=== PATIENT | male | born 1945 | race Caucasian/White ===

== ENCOUNTER 2020-09-16 07:30 | Day surgery (SDC) | payer MEDICARE, SELFPAY ==
[2020-09-10 11:53] VITALS: BMI 38.2
--- NOTE | 2020-09-12 13:05 | P.CONAN_ITS ---
Documented by User: Jeanne Malave 09/12/20 13:09 HPI - Anesthesia Eval Consult details Narrative: 75yo M for Colon[facility] Past Medical History Medical History Adverse reaction to spinal anesthetic Asthma Asymptomatic PVCs HTN (hypertension) Hx of iron deficiency anemia Hx of urethral stricture Hyperlipidemia PONV (postoperative nausea and vomiting) Urethra disorder Surgical History Surgical History History of back surgery History of thumb surgery Hx of colonoscopy Hx of cystoscopy Hx of shoulder surgery Hx of shoulder surgery Social History Social History Are you a primary direct care counselor to a significant other at home: No Do you presently have visiting nurse or other home services: No Smoking Status: Former smoker Smoking Quit Date: 50 yrs ago Use of substances other than those prescribed or required for medical reasons: No Have you been hit, kicked, punched, or otherwise hurt by someone within the past year? If so, by whom?: No Advance Directives: No Advance Directives Information Provided: No Advance Directives on File: No Recently lost weight without trying: No Meds Allergies Allergy/AdvReac Type Severity Reaction Status Date / Time Sulfa (Sulfonamide Allergy Unknown [place] Verified 09/10/20 11:16 Antibiotics) Lousy Home Medications Medication Instructions Recorded Confirmed Type albuterol sulfate [ProAir HFA] 1 puff INHALATION QID PRN 09/10/20 09/10/20 History amlodipine 1 tab PO DAILY 09/10/20 09/16/20 History aspirin [Aspir-81] 81 mg PO DAILY 09/10/20 09/10/20 History budesonide-formoterol [Symbicort] 2 puff INHALATION BID 09/10/20 09/16/20 History cetirizine 10 mg PO DAILY 09/10/20 09/10/20 History ibuprofen 1 tab PO TID 09/10/20 09/16/20 History ipratropium bromide 1 spray INTRANASAL BID PRN 09/10/20 09/10/20 History multivitamin,tj-tmwx-Yc-FA-min 1 tab PO DAILY 09/10/20 09/10/20 History [Multivitamin And Mineral] rosuvastatin 1 tab PO DAILY 09/10/20 09/10/20 History Exam Exam Date and Time: September 12, 2020 1305 Height,Weight and Vital Signs: Height 5 ft 8.5 in Weight 115.666 kg Assessment and Plan Assessment Anesthesia Assessment: Chart Reviewed Documented by User: Shaggy Rapp 09/16/20 08:42 [facility] Past Medical History Medical History Adverse reaction to spinal anesthetic Asthma Asymptomatic PVCs HTN (hypertension) Hx of iron deficiency anemia Hx of urethral stricture Hyperlipidemia PONV (postoperative nausea and vomiting) Urethra disorder Surgical History Surgical History History of back surgery History of thumb surgery Hx of colonoscopy Hx of cystoscopy Hx of shoulder surgery Hx of shoulder surgery Social History Social History Are you a primary direct care counselor to a significant other at home: No Do you presently have visiting nurse or other home services: No Smoking Status: Former smoker Smoking Quit Date: 50 yrs ago Use of substances other than those prescribed or required for medical reasons: No Have you been hit, kicked, punched, or otherwise hurt by someone within the past year? If so, by whom?: No Advance Directives: No Advance Directives Information Provided: No Advance Directives on File: No Recently lost weight without trying: No Meds Allergies Allergy/AdvReac Type Severity Reaction Status Date / Time Sulfa (Sulfonamide Allergy Unknown [place] Verified 09/10/20 11:16 Antibiotics) Lousy Home Medications Medication Instructions Recorded Confirmed Type albuterol sulfate [ProAir HFA] 1 puff INHALATION QID PRN 09/10/20 09/10/20 Hist ory amlodipine 1 tab PO DAILY 09/10/20 09/16/20 History aspirin [Aspir-81] 81 mg PO DAILY 09/10/20 09/10/20 History budesonide-formoterol [Symbicort] 2 puff INHALATION BID 09/10/20 09/16/20 Hist ory cetirizine 10 mg PO DAILY 09/10/20 09/10/20 History ibuprofen 1 tab PO TID 09/10/20 09/16/20 History ipratropium bromide 1 spray INTRANASAL BID PRN 09/10/20 09/10/20 History multivitamin,mp-qrib-Gs-FA-min 1 tab PO DAILY 09/10/20 09/10/20 History [Multivitamin And Mineral] rosuvastatin 1 tab PO DAILY 09/10/20 09/10/20 History Exam Airway Mallampati Class: II TM Dist: >3cm Neck ROM: Full Loose/Missing/Broken Teeth: Yes Heart: [id number] Lungs: cta b/l Assessment and Plan Assessment Anesthesia Assessment: Anesthesia Plan Discussed, PAT Visit and Chart Reviewed Final Anesthetic Review NPO: Yes ASA Class: III Final Preanesthetic Review: No Changes in Pt Med Stat, Meds/Allgs Chart Reviewed, Consent Obtained/Reviewed and Anes Risks/Benef Reviewed Patient Risk: Intermediate Procedure Risk: Low Assessment/Block/Sedation in SS: Assess/Block/Sedation-SS Anesthetic Plan Anesthetic Plan: MAC: and Agree w/ Assess. and Plan Disposition: Standard PACU
[2020-09-16 08:01] VITALS: BP 146/73; PULSE 98; RESP 18; TEMP 36.3; O2SAT 96
[2020-09-16] MEDS: Lactated Ringers 1,000 ML 100 ML IVCONT (08:05)
--- NOTE | 2020-09-16 09:54 | PM.OP ---
Brief Operative Note Date of Service: 09/16/20 Pre-op diagnosis: Screening Post-op diagnosis: other (Colon polyps) Procedure: Colonoscopy to cecum and TI with snare polypectomy and placement of 2 Resolution clips on the cecal and proximal asc. colon polypectomy sites Surgeon: Adriel Irving Anesthesia: MAC Estimated blood loss (mL): 3.0 Pathology: other (A. Transverse colon polyp B. Proximal ascending colon polyp C. Ascending colon polyps D. Cecal polyp E. Rectal polyp) Condition: stable Disposition: PACU
[2020-09-16 09:59] VITALS: BP 131/66; PULSE 73; RESP 20; TEMP 36.8; O2SAT 98
--- NOTE | 2020-09-16 10:11 | OP_ITS ---
SURGEON: Adriel Irving MD INDICATIONS: The patient presents for evaluation of colorectal cancer screening and personal history of tubular adenoma of the colon. Full consent has been obtained from him for this, including risks of bleeding and perforation. PREOPERATIVE DIAGNOSIS: POSTOPERATIVE DIAGNOSIS: PROCEDURE PERFORMED: Colonoscopy to cecum and terminal ileum with snare polypectomy, and placement of resolution clips x2. ESTIMATED BLOOD LOSS: COMPLICATIONS: ANESTHESIA: Monitored anesthesia care. ASSISTANTS: SPECIMENS: PREOPERATIVE DIAGNOSES: Personal history of tubular adenoma of the colon and colorectal cancer screening. POSTOPERATIVE DIAGNOSES: Personal history of tubular adenoma of the colon and colorectal cancer screening, colon polyps, diverticulosis, and internal hemorrhoids. DESCRIPTION OF PROCEDURE: The patient was placed in the left lateral decubitus position. The digital rectal exam revealed some small external hemorrhoidal tissue. The Olympus video pediatric colonoscope was entered into the rectum and advanced easily to the cecum. Once in the cecum, I did identify cecal pouch with appendiceal orifice and a normal-appearing ileocecal valve. The terminal ileum was cannulated and appeared normal. The scope was withdrawn back in the colon. The entire cecum was well visualized. In the cecum, was a relatively flat, but raised approximately 10 x 12 mm polyp, which was snared and recovered by suction. The polypectomy site appeared clean, without any sign of residual polyp nor bleeding. A single resolution clip was placed at the polypectomy site with good deployment and good hemostasis. The scope was then slowly withdrawn assessing all mucosal surfaces carefully. Preparation was excellent. In the proximal ascending colon, approximately 15 x 20 mm raised polyp, which was snared and removed in piecemeal fashion. Smaller pieces were recovered by suction and the larger piece was recovered with the retrieval net and withdrawing it out of the patient. The scope was withdrawn from the patient, but then re-advanced back to the polypectomy site. The polypectomy site appeared clean, without any sign of residual polyp nor bleeding. In the ascending colon, were several other smaller approximately 10 mm polyps, which were all snared and recovered by suction. The polypectomy sites appeared clean, without any sign of residual polyp nor bleeding. There were other smaller approximately 5 mm polyps, which were not removed in the colon. In the proximal rectum, was an approximately 15 mm polyp on a broad stalk, which was snared and recovered by withdrawing it from the patient on the tip of the scope. The scope was then reinserted into the rectum. The polypectomy site appeared clean, without any sign of residual polyp nor bleeding. I did place a single resolution clip on the polypectomy site with good deployment and good hemostasis. Of note, there was also a transverse colon polyp that was approximately 10 x 12 mm in diameter. This was also snared and recovered by suction. The polypectomy site appeared clean, without any sign of residual polyp nor bleeding. There was a moderate amount of sigmoid diverticulosis. In the rectum, scope was retroflexed visualizing internal hemorrhoids, but no other pathology. The scope was straightened out and withdrawn from the patient. He tolerated the procedure well and was returned to the recovery area in stable condition. IMPRESSION: 1. Multiple colon polyps, status post snare polypectomy and placement of 2 resolution clips. 2. Diverticulosis. 3. Internal hemorrhoids. PLAN: The results of the pathology will be checked. Given these findings, I would recommend a repeat colonoscopy within 1 year. I have instructed to see me in the fall, so we can set that up for him. He was advised not to use any aspirin and NSAIDs for at least a week. This has been discussed with his . MD MEGAN Sauceda/JOSS / [id number]
[2020-09-16 10:14] VITALS: BP 130/70; PULSE 65; RESP 18; TEMP 36.4; O2SAT 96
--- NOTE | 2020-09-16 10:29 | HO.POSTANES ---
Post Anesthesia Evaluation Post Anesthesia Evaluation Vital Signs: Vital Signs Temp Pulse Resp BP Pulse Ox 09/16/20 10:14 97.6 F 65 18 130/70 96 09/16/20 09:59 98.3 F 73 20 131/66 98 09/16/20 08:01 97.3 F 98 18 146/73 H 96 Anesthesia: Monitored Mental Status: Awake Nausea/Vomiting: None Hydration: Adequate Anesthesia-Related Issues: No Anes. Related Issues
== END 2020-09-16 10:50 | disposition home or self-care (01) ==
PROVIDERS: PCP Internal Medicine; Visit Provider Internal Medicine
PROC: 0DJD8ZZ Inspection of Lower Intestinal Tract, Via Natural or Artificial Opening Endoscopic (ICD-10-PCS; CPT 45378; principal; 2020-09-16 08:40)
DX: Z12.11 Encounter for screening for malignant neoplasm of colon (principal); D12.7 Benign neoplasm of rectosigmoid junction; D12.2 Benign neoplasm of ascending colon; D12.0 Benign neoplasm of cecum; D12.3 Benign neoplasm of transverse colon; K57.30 Diverticulosis of large intestine without perforation or abscess without bleeding; K64.8 Other hemorrhoids; Z86.010 Personal history of colon polyps; I10 Essential (primary) hypertension; Z79.82 Long term (current) use of aspirin; Z79.899 Other long term (current) drug therapy
CPT/HCPCS: 45385; 88305

== ENCOUNTER 2021-05-04 10:45 | Emergency (ER) | payer OTHER, MEDICARE, SELFPAY ==
[2021-05-04 11:09] VITALS: BP 156/76; PULSE 76; RESP 18; TEMP 36.7; O2SAT 96; BMI 38.7
--- NOTE | 2021-05-04 11:43 | PC.NURSE ---
Pt disimpacted at bedside by MD at bedside and fleet enema given. Commode at bedside.
--- NOTE | 2021-05-04 11:50 | ED_ITS ---
HPI - Abdominal Pain General Chief Complaint: Abdominal Pain Stated Complaint: abd pain, constipation Time Seen by Provider: 05/04/21 11:29 History of Present Illness HPI narrative: Patient is 76 years old presented today with having no bowel movement for last 3 days. No difficulty eating. Patient is passing gas. No abdominal surgery in the past. No fever no chills no cough no congestion or upper respiratory symptoms. No diaphoresis. No chest pain. Related Data Home Medications Medication Instructions Recorded Confirmed albuterol sulfate 90 mcg/actuation 1 puff INHALATION QID PRN 09/10/20 09/10/20 aerosol inhaler (ProAir HFA) amlodipine 2.5 mg tablet 1 tab PO DAILY 09/10/20 09/16/20 aspirin 81 mg tablet,delayed 81 mg PO DAILY 09/10/20 09/10/20 release budesonide-formoterol HFA 160 2 puff INHALATION BID 09/10/20 09/16/20 mcg-4.5 mcg/actuation aerosol inhaler (Symbicort) cetirizine 10 mg capsule 10 mg PO DAILY 09/10/20 09/10/20 ibuprofen 800 mg tablet 1 tab PO TID 09/10/20 09/16/20 ipratropium bromide 21 mcg (0.03 1 spray INTRANASAL BID PRN 09/10/20 09/10/20 %) nasal spray multivitamin,dv-ihgi-Me-FA-min 1 tab PO DAILY 09/10/20 09/10/20 rosuvastatin 5 mg tablet 1 tab PO DAILY 09/10/20 09/10/20 Allergies Allergy/AdvReac Type Severity Reaction Status Date / Time Sulfa (Sulfonamide Allergy Unknown [place] Verified 05/04/21 11:08 Antibiotics) Lousy Review of Systems Review of Systems No fever no chills no chest pain or Shortness breath no nausea no vomiting Positive no BM Positive flatus All systems reviewed otherwise negative Yes all other systems are reviewed and are negative Physical Exam Vital Signs: Vital Signs: Last Vital Signs Temp 98.1 F 05/04/21 11:09 Pulse 76 05/04/21 11:09 Resp 18 05/04/21 11:09 BP 156/76 H 05/04/21 11:09 Pulse Ox 96 05/04/21 11:09 Body Mass Index 38.7 Appearance: Alert. Oriented X3. No acute distress. Eyes: Pupils equal, round and reactive to light. ENT: Pharynx normal. Neck: Normal inspection. Neck supple. No lymph nodes noted. No crepitus CVS: Normal heart rate and rhythm. Pulses normal. Normal S1 and S2 Respiratory: No respiratory distress. Breath sounds normal. No Wheezing. No rales Abdomen: Soft and nontender. No rigidity. No distention. good BS x4 Rectal exam done with nurse Nettie present. Large amount of impacted stool noted. Skin: Skin warm and dry. Normal skin color. Normal skin turgor. Extremities: No lower extremity edema. Neurovascular intact to all extremities. No Lacerations. No Rash Neuro: Oriented X 3. No motor deficit. No sensory deficit. Moving all extermities. No slurred speech MDM - Abdominal Pain MDM Narrative Medical decision making narrative: Procedure note patient manually disimpacted with large amount of stool resulted. An enema was then given. With an even larger amount of stool resulted. Patient's symptoms completely relieved. Wants to go home. Will ask patient to eat lots of vegetables. Are not using prune juice. Follow-up on an outpatient basis. Differential Diagnosis Differential diagnosis: Likely constipation Discharge Plan Discharge Clinical Impression: Constipation Patient Disposition: Home, Self-Care Instructions: Constipation (ED) Prescriptions: No Action ibuprofen 800 mg tablet 1 tab PO TID RF: 0 amlodipine 2.5 mg tablet 1 tab PO DAILY RF: 0 aspirin [Aspir-81] 81 mg Tablet,Delayed Release (Dr/Ec) 81 mg PO DAILY RF: 0 albuterol sulfate [ProAir HFA] 90 mcg/actuation Hfa Aerosol Inhaler 1 puff INHALATION QID PRN (Reason: Wheezing) RF: 0 ipratropium bromide 0.03 % spray,non-aerosol 1 spray intranasal BID PRN (Reason: congestion) RF: 0 Multivitamin And Mineral Tablet 1 tab PO DAILY RF: 0 rosuvastatin 5 mg tablet 1 tab PO DAILY RF: 0 budesonide-formoterol [Symbicort] 160-4.5 mcg/actuation Hfa Aerosol Inhaler 2 puff INHALATION BID RF: 0 cetirizine 10 mg Capsule 10 mg PO DAILY RF: 0 Referrals: Torin Horn DO, MD [Primary Care Provider] - 2 days PMF Past Medical History Attestation statement: The following information was validated with the patient. Source: unable to obtain Medical History Adverse reaction to spinal anesthetic Asthma Asymptomatic PVCs HTN (hypertension) Hx of iron deficiency anemia Hx of urethral stricture Hyperlipidemia PONV (postoperative nausea and vomiting) Urethra disorder Surgical History History of back surgery History of thumb surgery Hx of colonoscopy Hx of cystoscopy Hx of shoulder surgery Hx of shoulder surgery Social History Social History Are you a primary medical care manager to a significant other at home: No Do you presently have visiting nurse or other home services: No Patient Tobacco Use Status: Former Tobacco user Use of substances other than those prescribed or required for medical reasons: No Advance Directives: No Advance Directives Information Provided: No
== END 2021-05-04 12:30 | disposition home or self-care (01) ==
PROVIDERS: Emergency Provider Emergency Medicine Emergency Medical Services; PCP Internal Medicine
DX: K59.00 Constipation, unspecified (principal); R10.9 Unspecified abdominal pain; Z79.899 Other long term (current) drug therapy
CPT/HCPCS: 99284

== ENCOUNTER 2021-12-01 06:21 | Day surgery (SDC) | payer MEDICARE, SELFPAY ==
[2021-11-25 09:21] VITALS: BMI 38.9
[2021-12-01 06:27] VITALS: BP 146/76; PULSE 78; RESP 18; TEMP 36.1; O2SAT 96
--- NOTE | 2021-12-01 07:31 | P.CONAN_ITS ---
REPLACED BY [facility] Past Medical History Medical History Adverse reaction to spinal anesthetic Asthma Asymptomatic PVCs HTN (hypertension) Hx of iron deficiency anemia Hx of urethral stricture Hyperlipidemia PONV (postoperative nausea and vomiting) Urethra disorder Functional capacity: independent ambulation Family History Family history of problems with anesthesia: No Surgical History Surgical History History of back surgery History of thumb surgery Hx of colonoscopy Hx of cystoscopy Hx of shoulder surgery Hx of shoulder surgery History of Problems with Anesthesia: No Social History Social History Are you a primary youth care worker to a significant other at home: No Do you presently have visiting nurse or other home services: No Patient Tobacco Use Status: Former Tobacco user Advance Directives: No Advance Directives Information Provided: Yes Advance Directives on File: No Meds Allergies Allergy/AdvReac Type Severity Reaction Status Date / Time Sulfa (Sulfonamide Allergy Intermediate [place] Verified 11/25/21 09:23 Antibiotics) Lousy Active Medications: Current Medications Sodium Biphosphate/Sodium Phosphate (Sodium Phosphate,[place]-Dibasic 133 Ml Enema) 133 ml MS ONCE PRN PRN Reason: Poor Colonoscopy Prep Results Home Medications Medication Instructions Recorded Confirmed Last Taken Type albuterol sulfate 90 mcg/actuation 1 puff INHALATION QID PRN 09/10/20 11/25/21 Unknown History aerosol inhaler (ProAir HFA) amlodipine 2.5 mg tablet 1 tab PO DAILY 09/10/20 11/25/21 12/01/21 History aspirin 81 mg tablet,delayed 81 mg PO DAILY 09/10/20 11/25/21 11/26/21 History release budesonide-formoterol HFA 160 2 puff INHALATION BID 09/10/20 11/25/21 12/01/21 History mcg-4.5 mcg/actuation aerosol inhaler (Symbicort) cetirizine 10 mg capsule 10 mg PO DAILY 09/10/20 11/25/21 Unknown History ibuprofen 800 mg tablet 1 tab PO TID 09/10/20 11/25/21 11/26/21 History ipratropium bromide 21 mcg (0.03 1 spray INTRANASAL BID PRN 09/10/20 11/25/21 Unknown History %) nasal spray multivitamin,hr-fyvd-Bh-FA-min 1 tab PO DAILY 09/10/20 11/25/21 Unknown History rosuvastatin 5 mg tablet 1 tab PO DAILY 09/10/20 11/25/21 Unknown History Exam Exam Date and Time: December 01, 2021 0731 Height,Weight and Vital Signs: Height 5 ft 8.5 in Weight 117.934 kg Last Vital Signs Temp 97 F 12/01/21 06:27 Pulse 78 12/01/21 06:27 Resp 18 12/01/21 06:27 BP 146/76 H 12/01/21 06:27 Pulse Ox 96 12/01/21 06:27 Airway Mallampati Class: II TM Dist: >3cm Neck ROM: Full Heart: RRR Lungs: CTA Assessment and Plan Final Anesthetic Review Family History of Problems with Anesthesia: No History of Problems with Anesthesia: No ASA Class: II Final Preanesthetic Review: No Changes in Pt Med Stat, Meds/Allgs Chart Reviewed, Consent Obtained/Reviewed and Anes Risks/Benef Reviewed Patient Risk: Low Procedure Risk: Low Anesthetic Plan Anesthetic Plan: MAC: Disposition: Standard PACU
[2021-12-01 08:34] VITALS: BP 114/61; PULSE 53; RESP 16; TEMP 36.2; O2SAT 93
--- NOTE | 2021-12-01 08:36 | P.BOP_ITS ---
Brief Operative Note Date of Service: 12/01/21 Pre-op diagnosis: Screening Post-op diagnosis: other (Colon polyp) Procedure: Colonoscopy to the cecum and TI with hot snare polypectomy and placement of two Resolution clips Surgeon: Adriel Irving Anesthesia: MAC Was an [employer] used for this Procedure?: No Estimated blood loss (mL): 0 Pathology: other (A. Proximal ascending colon polyp) Condition: stable Disposition: PACU
[2021-12-01 08:49] VITALS: BP 118/62; PULSE 63; RESP 16; TEMP 36.8; O2SAT 96
--- NOTE | 2021-12-01 09:37 | OP_ITS ---
SURGEON: Adriel Irving MD INDICATIONS: The patient presents for evaluation of polyp for personal history of tubular adenomas of the colon and colorectal cancer screening. Full consent has been obtained from him for this, including risks of bleeding and perforation. PREOPERATIVE DIAGNOSIS: Colorectal cancer screening and personal history of tubular adenomas of the colon. POSTOPERATIVE DIAGNOSIS: PROCEDURE PERFORMED: Colonoscopy to the cecum and terminal ileum with hot snare polypectomy and placement of 2 resolution clips. ESTIMATED BLOOD LOSS: COMPLICATIONS: ANESTHESIA: Medication used, monitored anesthesia care. ASSISTANTS: SPECIMENS: POSTOPERATIVE DIAGNOSES: Colorectal cancer screening and personal history of tubular adenomas of the colon, colon polyp, diverticulosis, and internal hemorrhoids. DESCRIPTION OF PROCEDURE: The patient was placed in the left lateral decubitus position. The digital rectal exam revealed no abnormalities. The Olympus video pediatric colonoscope was entered into the rectum and advanced easily to the cecum. Once in the cecum, I did identify a normal-appearing cecal pouch with appendiceal orifice and a normal-appearing ileocecal valve. The terminal ileum was cannulated and appeared normal. The scope was withdrawn back into the colon. The entire cecum and ileocecal valve appeared normal. The scope was then slowly withdrawn assessing all mucosal surfaces carefully. Preparation was excellent after suctioning and irrigating. In the proximal ascending colon on a fold was an approximately 1.5 cm long lobulated polyp which was removed in piecemeal fashion with a hot snare polypectomy with pieces recovered by suction. Post-polypectomy there did not appear to be any definitive residual polyp remaining and 2 resolution clips were deployed with good hemostasis and good placement. I did not visualize any other polyps, although the prep was somewhat limited which could have limited visualization of small polyps. There was no evidence of colitis nor angiodysplasia. There was a moderate amount of sigmoid diverticulosis. In the rectum, the scope was retroflexed visualizing some small internal hemorrhoids, but no other pathology. In the distal rectum was a scar from his previous polypectomy. The scope was straightened and withdrawn from the patient. He tolerated the procedure well and was returned to the recovery area in stable condition. IMPRESSION: 1. Colon polyp. 2. Diverticulosis. 3. Internal hemorrhoids. PLAN: The results of the pathology will be checked. I would recommend a repeat colonoscopy within 1-2 years for further surveillance. He was advised not to use any aspirin nor NSAIDs for at least 1 week. This has been discussed with his . MD MEGAN Sauceda/JOSS / [id number] MTDD
--- NOTE | 2021-12-01 10:12 | HO.POSTANES ---
Post Anesthesia Evaluation Post Anesthesia Evaluation Vital Signs: Vital Signs Temp Pulse Resp BP Pulse Ox 12/01/21 08:49 98.2 F 63 16 118/62 96 12/01/21 08:34 97.2 F 53 16 114/61 93 12/01/21 06:27 97 F 78 18 146/76 H 96 Anesthesia: Monitored Mental Status: Awake Pain Control: Satisfactory Nausea/Vomiting: None Hydration: Adequate Anesthesia-Related Issues: No Anes. Related Issues
== END 2021-12-01 09:23 | disposition home or self-care (01) ==
PROVIDERS: PCP Internal Medicine; Visit Provider Internal Medicine
PROC: 0DJD8ZZ Inspection of Lower Intestinal Tract, Via Natural or Artificial Opening Endoscopic (ICD-10-PCS; CPT 45378; principal; 2021-12-01 07:30)
DX: Z12.11 Encounter for screening for malignant neoplasm of colon (principal); Z86.010 Personal history of colon polyps; D12.2 Benign neoplasm of ascending colon; K57.30 Diverticulosis of large intestine without perforation or abscess without bleeding; K64.8 Other hemorrhoids; I10 Essential (primary) hypertension; E78.5 Hyperlipidemia, unspecified; J45.909 Unspecified asthma, uncomplicated; R97.20 Elevated prostate specific antigen [PSA]; Z79.82 Long term (current) use of aspirin; Z79.51 Long term (current) use of inhaled steroids; Z79.899 Other long term (current) drug therapy; Z98.890 Other specified postprocedural states; Z79.1 Long term (current) use of non-steroidal anti-inflammatories (NSAID); Z87.891 Personal history of nicotine dependence
CPT/HCPCS: 45385; 88305

== ENCOUNTER 2024-05-12 09:08 | Day surgery (SDC) | payer MEDICARE, SELFPAY ==
[2024-05-12 10:19] VITALS: BMI 27.6
--- NOTE | 2024-05-12 10:25 | P.CONAN_ITS ---
Documented by User: Jeanne Malave NP 05/11/24 13:43 HPI - Anesthesia Eval Consult details Narrative: 79yo M for Colonoscopy Follows [facility]. 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 No ICD per ILR. Stable at 02/2024 office visit with 60lb weight loss since CABG PMFSH Past Medical History Medical History Hx of iron deficiency anemia Asymptomatic PVCs Urethra disorder Adverse reaction to spinal anesthetic PONV (postoperative nausea and vomiting) Hx of urethral stricture Hyperlipidemia Asthma HTN (hypertension) Family History Family history of problems with anesthesia: No Surgical History Surgical History (Updated 05/12/24 @ 10:19 by Khushbu Valenzuela RN) History of surgery Hx of CABG History of back surgery History of thumb surgery Hx of shoulder surgery Hx of cystoscopy Hx of shoulder surgery Hx of colonoscopy History of Problems with Anesthesia: No Social History Social History Are you a primary residential child care counselor to a significant other at home: No Do you presently have visiting nurse or other home services: No Patient Tobacco Use Status: Former Tobacco user Use of substances other than those prescribed or required for medical reasons: No Are you DNR?: No Advance Directives: No Advance Directives Information Provided: Yes Recently lost weight without trying: No Nutrition Risks: No Nutritional Risk Meds Allergies Allergy/AdvReac Type Severity Reaction Status Date / Time Sulfa (Sulfonamide Allergy Intermediate [place] Verified 11/25/21 09:23 Antibiotics) Lousy Home Medications ?Medication ?Instructions ?Recorded ?Confirmed ?Last Taken ?Type albuterol sulfate 90 mcg/actuation 1 puff inhalation QID PRN Wheezing 09/10/20 11/25/21 Unknown History aerosol inhaler (ProAir HFA) aspirin 81 mg tablet,delayed 81 mg PO DAILY 09/10/20 11/25/21 11/26/21 History release budesonide-formoterol HFA 160 2 puff inhalation DAILY 09/10/20 11/25/21 12/01/21 History mcg-4.5 mcg/actuation aerosol inhaler (Symbicort) cetirizine 10 mg capsule 10 mg PO DAILY 09/10/20 11/25/2124 History ibuprofen 800 mg tablet 1 tab PO TID 09/10/20 11/25/21 11/26/21 History ipratropium bromide 21 mcg (0.03 1 spray intranasal BID PRN 09/10/20 11/25/21 Unknown History %) nasal spray congestion multivitamin,ur-jsan-Tg-FA-min 1 tab PO DAILY 09/10/20 11/25/21 Unknown History rosuvastatin 5 mg tablet 1 tab PO DAILY 09/10/20 11/25/21 Unknown History metoprolol succinate 25 mg 12.5 mg PO DAILY 05/12/24 05/12/24 05/12/24 History tablet,extended release 24 hr Exam Pertinent Lab Results Pertinent Lab Results: Outside facility 09/2023 [place] Narrative Narrative: EKG 02/2024 SB @ 49 Echo 01/2023 mild dilated LA EF 55-60%, sinus of valsalva 4.2cm, asc aorta 4.2cm Assessment and Plan Assessment Anesthesia Assessment: Chart Reviewed Final Anesthetic Review Family History of Problems with Anesthesia: No History of Problems with Anesthesia: No Documented by User: Juana Corral DO 05/12/24 10:32 [facility] Past Medical History Medical History Hx of iron deficiency anemia Asymptomatic PVCs Urethra disorder Adverse reaction to spinal anesthetic PONV (postoperative nausea and vomiting) Hx of urethral stricture Hyperlipidemia Asthma HTN (hypertension) Family History Family history of problems with anesthesia: No Surgical History Surgical History (Updated 05/12/24 @ 10:19 by Khushbu Valenzuela RN) History of surgery Hx of CABG History of back surgery History of thumb surgery Hx of shoulder surgery Hx of cystoscopy Hx of shoulder surgery Hx of colonoscopy History of Problems with Anesthesia: No (had PONV decades ago but no issues with subsequent surgeries) Social History Social History Are you a primary residential child care counselor to a significant other at home: No Do you presently have visiting nurse or other home services: No Patient Tobacco Use Status: Former Tobacco user Use of substances other than those prescribed or required for medical reasons: No Are you DNR?: No Advance Directives: No Advance Directives Information Provided: Yes Recently lost weight without trying: No Nutrition Risks: No Nutritional Risk Meds Allergies Allergy/AdvReac Type Severity Reaction Status Date / Time Sulfa (Sulfonamide Allergy Intermediate [place] Verified 11/25/21 09:23 Antibiotics) Lousy Home Medications ?Medication ?Instructions ?Recorded ?Confirmed ?Last Taken ?Type albuterol sulfate 90 mcg/actuation 1 puff inhalation QID PRN Wheezing 09/10/20 11/25/21 Unknown History aerosol inhaler (ProAir HFA) aspirin 81 mg tablet,delayed 81 mg PO DAILY 09/10/20 11/25/21 11/26/21 History release budesonide-formoterol HFA 160 2 puff inhalation DAILY 09/10/20 11/25/21 12/01/21 History mcg-4.5 mcg/actuation aerosol inhaler (Symbicort) cetirizine 10 mg capsule 10 mg PO DAILY 09/10/20 11/25/21 05/12/24 History ibuprofen 800 mg tablet 1 tab PO TID 09/10/20 11/25/21 11/26/21 History ipratropium bromide 21 mcg (0.03 1 spray intranasal BID PRN 09/10/20 11/25/21 Unknown History %) nasal spray congestion multivitamin,hx-oqtn-Cs-FA-min 1 tab PO DAILY 09/10/20 11/25/21 Unknown History rosuvastatin 5 mg tablet 1 tab PO DAILY 09/10/20 11/25/21 Unknown History metoprolol succinate 25 mg 12.5 mg PO DAILY 05/12/24 05/12/24 05/12/24 History tablet,extended release 24 hr Exam Exam Date and Time: 05/12/24 1025 Height,Weight and Vital Signs: Height 5 ft 8 in Weight 82.214 kg Airway Mallampati Class: I TM Dist: >3cm Neck ROM: Full Loose/Missing/Broken Teeth: No (patient denies any loose or broken teeth) Heart: S1S2 Lungs: CTAB Assessment and Plan Assessment Anesthesia Assessment: Anesthesia Plan Discussed and Chart Reviewed Final Anesthetic Review Family History of Problems with Anesthesia: No History of Problems with Anesthesia: No (had PONV decades ago but no issues with subsequent surgeries) NPO: Yes ASA Class: III Final Preanesthetic Review: No Changes in Pt Med Stat, Meds/Allgs Chart Reviewed, Consent Obtained/Reviewed and Anes Risks/Benef Reviewed Patient Risk: Intermediate Procedure Risk: Low Anesthetic Plan Anesthetic Plan: MAC: and Agree w/ Assess. and Plan Disposition: Standard PACU
[2024-05-12] MEDS: Lactated Ringers 1,000 ML 100 ML IVCONT (10:49)
[2024-05-12 12:54] VITALS: BP 113/37; PULSE 50; RESP 16; TEMP 36.1; O2SAT 97
--- NOTE | 2024-05-12 13:02 | P.BOP_ITS ---
Brief Operative Note Date of Service: 05/12/24 Pre-op diagnosis: Screening Post-op diagnosis: other (Colon polyps) Procedure: Colonoscopy to the cecum with hot snare polypectomy x 8 and placement of 7 Resolution clips Surgeon: Adriel Irving MD Anesthesia: MAC Was an Chief Of Police used for this Procedure?: No Estimated blood loss (mL): 2.0 Pathology: other (A. Cecal polyps B. Ascending colon polyps C. Transverse colon polyps) Condition: stable Disposition: PACU
[2024-05-12 13:09] VITALS: BP 136/64; PULSE 52; RESP 16; TEMP 36.1; O2SAT 99
--- NOTE | 2024-05-12 13:34 | OP_ITS ---
DATE OF SERVICE: 05/12/2024 SURGEON: Adriel Irving MD INDICATIONS: The patient presents for followup of colorectal cancer screening and personal history of tubular adenoma of the colon. Full consent has been obtained from him for this, including risks of bleeding and perforation. PREOPERATIVE DIAGNOSIS: POSTOPERATIVE DIAGNOSIS: PROCEDURE PERFORMED: Colonoscopy to the cecum with multiple hot snare polypectomies and placement of a total of 7 Resolution clips. ESTIMATED BLOOD LOSS: COMPLICATIONS: ANESTHESIA: Monitored anesthesia care. ASSISTANTS: SPECIMENS: PREOPERATIVE DIAGNOSES: Colorectal cancer screening and personal history of tubular adenoma of the colon. POSTOPERATIVE DIAGNOSES: Colorectal cancer screening, personal history of tubular adenoma of the colon, multiple colon polyps, diverticulosis, and internal hemorrhoids. DESCRIPTION OF PROCEDURE: The patient was placed in the left lateral decubitus position. The digital rectal exam revealed no abnormalities. The Olympus video pediatric colonoscope was then entered into the rectum and advanced to the cecum with the assistance of abdominal wall pressure. Advancement to the cecum was difficult. Preparation was also somewhat limited in the left colon. Once in the cecum, I did obtain a good visualization of the cecal pouch, including the appendiceal orifice and ileocecal valve. In the cecum, were 4 polyps ranging in size from 12 mm to 5 mm. They are all grossly adenomatous. These were all removed by hot snare polypectomy with 2 recovered by suction. I did place a Resolution clip on each polypectomy site other than 1 of the smaller polyps as I could not find the site. All of the polypectomy sites did appear clean, without any sign of residual polyp nor bleeding. All 3 of the Resolution clips that were deployed did deploy well and there was good hemostasis. The scope was then slowly withdrawn assessing all mucosal surfaces carefully. Preparation was very good in the ascending and transverse colon, but somewhat limited in the descending and sigmoid colon. In the proximal ascending colon, was an approximately 10 mm polyp, which was removed by hot snare polypectomy and recovered by suction. In the more distal ascending colon, was an approximately 12 mm relatively flat polyp that was removed by hot snare polypectomy. Both polyps were recovered by suction. Both polypectomy sites were clean and without any sign of residual polyp nor bleeding. A single Resolution clip was deployed on each site with good deployment and good hemostasis. In the transverse colon, were 2 larger polyps, each approximately 12 to 15 mm in diameter. These were both removed by hot snare polypectomy and recovered by suction. The polypectomy sites appeared clean, without any sign of residual polyp nor bleeding. A single Resolution clip was applied to each site with good deployment and good hemostasis. There were other smaller, less than 5 mm polyps, which were not removed due to the length of the procedure. There was a mild amount of sigmoid diverticulosis. I did not visualize any sign of colitis nor angiodysplasias. Again, the prep in the left colon was somewhat limited. In the rectum, scope was retroflexed, visualizing internal hemorrhoids. The prep in the rectum was somewhat limited as well. The scope was withdrawn from the patient. He tolerated the procedure well and was returned to the recovery area in stable condition. IMPRESSION: 1. Multiple colon polyps. 2. Diverticulosis. 3. Internal hemorrhoids. PLAN: The results of the pathology will be checked. Given today's findings and his history of other colonoscopies revealing multiple polyps, I would recommend a repeat colonoscopy in about 2 years with a full 2-day prep. For today's procedure, he took 2 extra Dulcolax 2 days before, but next time, I would recommend the full 2-day prep with both MiraLAX and Dulcolax 2 days before. He has been off his clopidogrel for several months now. He did take aspirin yesterday. I told him to resume his aspirin in 48 hours. This has all been discussed with his . MD MEGAN Sauceda/JOSS / [phone]
== END 2024-05-12 13:40 | disposition home or self-care (01) ==
PROVIDERS: PCP Internal Medicine; Visit Provider Internal Medicine
PROC: 0DJD8ZZ Inspection of Lower Intestinal Tract, Via Natural or Artificial Opening Endoscopic (ICD-10-PCS; CPT 45378; principal; 2024-05-12 10:30)
DX: Z12.11 Encounter for screening for malignant neoplasm of colon (principal); Z86.0101 Personal history of adenomatous and serrated colon polyps; D12.0 Benign neoplasm of cecum; D12.2 Benign neoplasm of ascending colon; D12.3 Benign neoplasm of transverse colon; K57.30 Diverticulosis of large intestine without perforation or abscess without bleeding; K64.8 Other hemorrhoids; K59.00 Constipation, unspecified; I10 Essential (primary) hypertension; J45.909 Unspecified asthma, uncomplicated; J61 Pneumoconiosis due to asbestos and other mineral fibers; I25.2 Old myocardial infarction; Z87.891 Personal history of nicotine dependence; Z79.82 Long term (current) use of aspirin; Z79.899 Other long term (current) drug therapy
CPT/HCPCS: 45385; 88305; J2003; J2704

== ENCOUNTER 2024-05-26 10:35 | Emergency (ER) | payer MEDICARE, SELFPAY ==
--- NOTE | ~2024-05-26 | XR_ITS ---
EXAMINATION: XR ABDOMEN KUB CLINICAL INDICATION: Constipation. COMPARISON: None available. TECHNIQUE: 2 views of the abdomen. FINDINGS: The bowel gas pattern is nonobstructive. There is abundant stool throughout the right side of the colon. There are surgical clips over the right abdomen. There are sternotomy sutures. There is a mediastinal clip. Calcification over the right lower thorax is suspected to represent calcified pleural plaque. No acute osseous abnormality. XR/XR KUB IMPRESSION: Nonobstructive bowel gas pattern. Abundant stool throughout the right side of the colon. Electronically signed by: Russ Guillen DO 05/26/2024 03:06 PM EDT
[2024-05-26 10:48] VITALS: BP 158/53; PULSE 56; RESP 18; TEMP 36.9; O2SAT 98; BMI 28.0
--- NOTE | 2024-05-26 11:51 | PC.NURSE ---
provided a urine specimen in triage.
[2024-05-26 12:09] LABS: Basophils Percent Auto 0.6 % (0-2); Eosinophils Absolute Auto 0.1 X10*3/uL (0.0-0.4); Eosinophils Percent Auto 0.9 % (0-4); Hematocrit 39.6 % (42.0-52.0); Hemoglobin 13.6 g/dl (14.0-18.0); Imm Gran Abs Auto 0.03 X10*3/uL (0.00-0.03); Imm Gran Pct Auto 0.5 % (0.0-0.4); Lymphocytes Percent Auto 15.6 % (20-40); MANUAL DIFF FLAG NO; Mean Corpuscular HGB Conc 34.3 g/dl (31.0-36.0); Mean Corpuscular Hemoglobin 32.2 pg (27.0-33.0); Mean Corpuscular Volume 93.8 fL (80.0-98.0); Mean Platelet Volume 10.3 fL (9.4-12.4); Monocytes Absolute Auto 0.6 X10*3/uL (0.1-1.2); Monocytes Percent Auto 9.8 % (2-11); Neutrophils Absolute Auto 4.7 x10*3/uL (2.0-8.3); Neutrophils Percent Auto 72.6 % (45-73); Platelet Count 206 X10*3/uL (160-400); Red Blood Count 4.22 X10*6/uL (4.60-5.80); Red Cell Distribution Width 13.2 % (11.0-16.0); White Blood Count 6.4 X10*3/uL (4.8-10.8)
[2024-05-26 12:11] LABS: Appearance Urine Clear; Color Urine Yellow; Glucose Urine UA Negative (Negative); Leukocyte Esterase Urine Trace (Negative); Nitrite Urine Negative (Negative); Specific Gravity - Urine 1.015 (1.005-1.025); UMIC TRIGGER UACC YES; Urine Blood Negative (Negative); Urine Ketones Negative (Negative); Urine Protein Negative (Neg-Trace)
[2024-05-26 12:14] VITALS: BP 170/63; PULSE 66; RESP 19; TEMP 36.3; O2SAT 96
[2024-05-26 12:19] LABS: Bacteria Urine None Seen (None Seen); Hyaline Casts Urine 0-2 /LPF (0-2); RBC Urine 0-2 /HPF (0-2); Squamous Epithelial Cell Urine 0-2 /HPF (0-2); WBC Urine 0-5 /HPF (0-5)
--- NOTE | 2024-05-26 12:24 | ED_ITS ---
HPI - Abdominal Pain General Chief Complaint: Abdominal Pain Stated Complaint: constipation Time Seen by Provider: 05/26/24 12:12 Source: patient, RN notes reviewed and old records reviewed Mode of arrival: ambulatory History of Present Illness ED Provider: Velia Joaquin PA-C HPI narrative: 79-year-old male with a past medical history of NE, iron-deficiency anemia, urethral disorder s/p peritoneal flap, HLD, asthma, HTN, s/p colonoscopy w/polypectomy x8 and placement of 7 resolution clips on 05/12/[address] Irving, presenting to the ED complaining of constipation without BM x3 days. Is passing small amount of flatus. Reports rectal pressure and sensation to have BM. Denies nausea, vomiting, fever, abdominal pain Related Data Home Medications ?Medication ?Instructions ?Recorded ?Confirmed albuterol sulfate 90 mcg/actuation 1 puff inhalation QID PRN Wheezing 09/10/20 11/25/21 aerosol inhaler (ProAir HFA) aspirin 81 mg tablet,delayed 81 mg PO DAILY 09/10/20 11/25/21 release budesonide-formoterol HFA 160 2 puff inhalation DAILY 09/10/20 11/25/21 mcg-4.5 mcg/actuation aerosol inhaler (Symbicort) cetirizine 10 mg capsule 10 mg PO DAILY 09/10/20 11/25/21 ibuprofen 800 mg tablet 1 tab PO TID 09/10/20 11/25/21 ipratropium bromide 21 mcg (0.03 1 spray intranasal BID PRN 09/10/20 11/25/21 %) nasal spray congestion multivitamin,en-svsq-Jm-FA-min 1 tab PO DAILY 09/10/20 11/25/21 rosuvastatin 5 mg tablet 1 tab PO DAILY 09/10/20 11/25/21 metoprolol succinate 25 mg 12.5 mg PO DAILY 05/12/24 05/12/24 tablet,extended release 24 hr Allergies Allergy/AdvReac Type Severity Reaction Status Date / Time Sulfa (Sulfonamide Allergy Intermediate [place] Verified 05/26/24 10:49 Antibiotics) Lousy Review of Systems Review of Systems Yes all other systems are reviewed and are negative Constitutional: Reports as per HPI [facility] Past Medical History Attestation statement: The following information was validated with the patient. Source: old records reviewed Medical History Myocardial infarct Cardiac arrest Hx of iron deficiency anemia Asymptomatic PVCs Urethra disorder Adverse reaction to spinal anesthetic PONV (postoperative nausea and vomiting) Hx of urethral stricture Hyperlipidemia Asthma HTN (hypertension) Surgical History History of surgery Hx of CABG History of back surgery History of thumb surgery Hx of shoulder surgery Hx of cystoscopy Hx of shoulder surgery Hx of colonoscopy Social History Social History Are you a primary healthcare customer service to a significant other at home: No Do you presently have visiting nurse or other home services: No Patient Tobacco Use Status: Former Tobacco user Smoked in Last 30 Days: No Use of substances other than those prescribed or required for medical reasons: No Advance Directives: No Advance Directives Information Provided: Yes Do you have a plan to hurt others: No Plan Physical Exam ED Vital Signs: Vital Signs - 24 hr 05/26/24 10:48 05/26/24 12:14 05/26/24 16:47 Temperature 98.5 F 97.4 F 98.1 F Pulse Rate 56 66 56 Respiratory Rate 18 19 18 Blood Pressure 158/53 H 170/63 H 133/70 Pulse Oximetry 98 96 99 Oxygen Delivery Method Room Air Room Air Room Air BMI result Body Mass Index 28.0 Const General: cooperative, healthy appearing and no acute distress Orientation/consciousness: patient oriented x3 Limitations: no limitations HENMT Head: Yes normal to inspection and Yes atraumatic Ears: hearing grossly normal bilaterally General nose exam: Normal external nose present Face and sinus: Yes normal facial exam Eyes General: appearance normal, both eyes and all related structures EOM: EOMs intact bilaterally Neck Neck: Yes normal visual inspection and Yes no meningeal signs Resp Effort & Inspection: normal respiratory effort and no respiratory distress Cardio Rate: regular rate GI Inspection: Yes normal to inspection Palpation (GI): Soft to palpation, nontender, no guarding and not rigid Rectal Exam - Male: Yes fecal impaction Skin Rashes: no rashes Wounds: no wounds Neuro General: patient oriented x3, tone normal and no meningeal signs Cranial nerves: Yes CN's II-XII intact bilaterally Gait exam (Neuro): Normal gait present Extrem General: Yes normal to inspection Procedures Rectal Disimpaction Indication: fecal impaction Procedural Sedation: No Sedation/Analgesia: none Technique: manual disimpaction with gloved finger Result: significant stool output Patient Tolerated Procedure: well and no complications Complications: none Course Course Course Narrative: -1542--no leukocytosis. Labs otherwise reassuring. UA negative XR KUB IMPRESSION: Nonobstructive bowel gas pattern. Abundant stool throughout the right side of the colon. 1543- > patient given enema after manual disimpaction. Did have 1 BMs, however on re-evaluation feels repeat rectal pressure/impaction. > no appreciable stool in rectal vault on repeat exam. Patient requesting additional enema -4--after repeat and my patient with small p.m.. Reports symptomatic improvement. Feels safe for discharge home at this time Results discussed with patient including worrisome signs and symptoms and strict return precautions, and when to return to the emergency department. They verbalized understanding and feel safe for discharge at this time. Medical Decision Making Medical Decision Making [facility] Narrative: 79-year-old male with a past medical history of NE, iron-deficiency anemia, urethral disorder s/p peritoneal flap, HLD, asthma, HTN, s/p colonoscopy w/polypectomy x8 and placement of 7 resolution clips on 05/12/[address] Irving, presenting to the ED complaining of constipation without BM x3 days. On exam vital signs stable, NAD, nontoxic appearing, abdomen soft/nontender, on rectal exam fecal impaction noted, removed at bedside with good result. Concern for fecal impaction vs SBO. Lower suspicion for appendicitis/diverticulitis. Plan: Labs, UA, x-ray, enema Please refer to course for remaining clinical decision making, interpretation of labs/imaging results, and discussions with consultants and/or family members. Differential Diagnosis Differential Diagnoses: The differential diagnosis associated with the presentation includes As above Admission/Observation Consideration of admission/observation: Escalation of care including admission/observation considered Lab Data [facility] Lab Attestation statement: I reviewed the patient's lab results. 05/26/24 11:57 05/26/24 11:57 Labs: Lab Results 05/26/24 Range/Units 11:57 WBC 6.4 (4.8-10.8) X10*3/uL RBC 4.22 L (4.60-5.80) X10*6/uL Hgb 13.6 L (14.0-18.0) g/dl Hct 39.6 L (42.0-52.0) % MCV 93.8 (80.0-98.0) fL MCH 32.2 (27.0-33.0) pg MCHC 34.3 (31.0-36.0) g/dl RDW 13.2 (11.0-16.0) % Plt Count 206 (160-400) X10*3/uL MPV 10.3 (9.4-12.4) fL Immature Gran % (Auto) 0.5 H (0.0-0.4) % Neut % (Auto) 72.6 (45-73) % Lymph % (Auto) 15.6 L (20-40) % [place] % (Auto) 9.8 (2-11) % Eos % (Auto) 0.9 (0-4) % Baso % (Auto) 0.6 (0-2) % Lymph # (Auto) 1.0 L (1.2-4.9) X10*3/uL [place] # (Auto) 0.6 (0.1-1.2) X10*3/uL Eos # (Auto) 0.1 (0.0-0.4) X10*3/uL Baso # (Auto) 0.0 (0.0-0.2) X10*3/uL Abs Immat Gran (auto) 0.03 (0.00-0.03) X10*3/uL Absolute Neuts (auto) 4.7 (2.0-8.3) x10*3/uL Absolute Nucleated RBC 0.000 (0.0-0.012) X10*3/uL Nucleated RBC % (auto) 0.0 (0.0-0.2) /100WBC Sodium 140 (135-145) mmol/L Potassium 4.0 (3.3-5.1) mmol/L Chloride 105 (96-108) mmol/L Carbon Dioxide 29 (22-29) mmol/L Anion Gap 10 L (12-20) BUN 17 H (9-16) mg/dL Creatinine 0.72 (0.5-1.4) mg/dL Estim Creat Clear Calc 89.0 Estimated GFR > 60 Random Glucose 100 (60-115) mg/dL Calcium 9.9 (8.4-10.2) mg/dL Total Bilirubin 1.3 H (0.0-1.0) mg/dL AST 30 (5-37) U/L ALT 28 (0-40) U/L Alkaline Phosphatase 74 (39-117) U/L Total Protein 6.6 (6.5-8.0) g/dL Albumin 4.4 (3.5-5.0) g/dL Urine Color Yellow Urine Appearance Clear Urine pH 6.0 (5.0-9.0) Ur Specific [place] 1.015 (1.005-1.025) Urine Protein Negative (Neg-Trace) mg/dL Urine Glucose (UA) Negative (Negative) mg/dL Urine Ketones Negative (Negative) mg/dL Urine Blood Negative (Negative) Urine Nitrite Negative (Negative) Ur Leukocyte Esterase Trace H (Negative) Urine RBC 0-2 (0-2) /HPF Urine WBC 0-5 (0-5) /HPF Ur Squamous Epith Cells 0-2 (0-2) /HPF Urine Bacteria None Seen (None Seen) Hyaline Casts 0-2 (0-2) /LPF Independent Interpretation I performed an independent interpretation of an: Plain X-Ray Radiology Impression Discussion of test interpretation with radiology: I have reviewed the radiologist's reading. External Record Review External record reviewed: Inpatient record, Office record, Outpatient record, Prior outpatient labs, Prior outpatient radiology, Primary care record and Outside ED record Tests considered The following testing was considered but not selected: As above Chronic Conditions Patient?s care impacted by: Other (CAD) Medications Administered Discontinued Medications Generic Name Dose Route Start Last Admin Trade Name Antioneq PRN Reason Stop Dose Admin Mineral Oil 133 ml 05/26/24 12:35 05/26/24 13:15 Mineral Oil Enema 133 Ml Enema [place] 05/26/24 12:36 133 ml ONCE ONE Administration Mineral Oil 133 ml 05/26/24 15:58 05/26/24 16:12 Mineral Oil Enema 133 Ml Enema MI 05/26/24 15:59 133 ml ONCE ONE Administration Polyethylene Glycol 17 gm 05/26/24 15:59 05/26/24 16:12 Polyethylene Glycol 3350 17 Gm Powd.Pack PO 05/26/24 16:00 17 gm ONCE ONE Administration Discharge Plan Discharge Clinical Impression: Fecal impaction Patient Disposition: Still a Patient Prescriptions: No Action ibuprofen 800 mg tablet 1 tab PO TID aspirin [Aspir-81] 81 mg Tablet,Delayed Release (Dr/Ec) 81 mg PO DAILY albuterol sulfate [ProAir HFA] 90 mcg/actuation Hfa Aerosol Inhaler 1 puff INHALATION QID PRN (Reason: Wheezing) ipratropium bromide 0.03 % spray,non-aerosol 1 spray intranasal BID PRN (Reason: congestion) Multivitamin And Mineral Tablet 1 tab PO DAILY rosuvastatin 5 mg tablet 1 tab PO DAILY budesonide-formoterol [Symbicort] 160-4.5 mcg/actuation Hfa Aerosol Inhaler 2 puff INHALATION DAILY cetirizine 10 mg Capsule 10 mg PO DAILY metoprolol succinate 25 mg tablet extended release 24 hr 12.5 mg PO DAILY Print Language: Azeri
[2024-05-26 12:29] LABS: Alanine Aminotransferase 28 U/L (0-40); Albumin Level 4.4 g/dL (3.5-5.0); Alkaline Phosphatase 74 U/L (39-117); Anion Gap 10 (12-20); Aspartate Amino Transferase 30 U/L (5-37); Bilirubin Total 1.3 mg/dL (0.0-1.0); Blood Urea Nitrogen 17 mg/dL (9-16); Calcium 9.9 mg/dL (8.4-10.2); Carbon Dioxide 29 mmol/L (22-29); Chloride 105 mmol/L (96-108); Estimated Glomerular Filt Rate > 60; Glucose Random 100 mg/dL (60-115); Sodium 140 mmol/L (135-145); Total Protein 6.6 g/dL (6.5-8.0)
[2024-05-26] MEDS: Mineral OiL enema 133 ML ENEMA PR ×2 (13:15→16:12)
[2024-05-26] MEDS: polyethylene glycoL 3350 17 GM POWD.PACK PO (16:12)
[2024-05-26 16:47] VITALS: BP 133/70; PULSE 56; RESP 18; TEMP 36.7; O2SAT 99
[2024-05-26 18:01] VITALS: BP 133/70; PULSE 56; RESP 18; TEMP 36.7; O2SAT 99
== END 2024-05-26 18:02 | disposition home or self-care (01) ==
PROVIDERS: Registered Nurse Emergency; Emergency Provider Internal Medicine; PCP Internal Medicine
DX: K56.41 Fecal impaction (principal); D50.9 Iron deficiency anemia, unspecified; I10 Essential (primary) hypertension; E78.5 Hyperlipidemia, unspecified; Z79.899 Other long term (current) drug therapy
CPT/HCPCS: 36415; 74018; 80053; 81001; 85025; 99284